=== PATIENT | female | born 1970 | race Caucasian/White ===

== ENCOUNTER 2021-12-21 11:51 | Emergency (ER) | payer OTHER ==
[~2021-12-21] VITALS: Ht 167 cm; Wt 68.0 kg
--- NOTE | 2021-12-21 13:16 | Diagnostic Imaging Report ---
INDICATION: constipation alternating with diarrhea COMPARISON: None. FINDINGS: Supine and upright views of the abdomen show a nondistended bowel gas pattern. No abnormal air fluid levels or free intraperitoneal air is seen. No abnormal extraosseous calcifications are seen. Bony and soft tissue structures are within normal limits. No organomegaly is identified. Accompanying upright chest shows normal heart size and pulmonary vascularity. The lungs are well aerated and clear. The mediastinum is normal in appearance. IMPRESSION: 1. No bowel obstruction or free air. 2. Normal chest. No pneumonia or pulmonary edema. Dictated by: Dictated on workstation # [id number]
--- NOTE | 2021-12-21 13:28 | ED GI ---
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 SHE REPORTS TAKING 3 BOTTLES OF MIRALAX OVER THE 9 DAYS. Source of Information: Patient History of Present Illness Date Seen by Provider: Dec 21, 2021 Time Seen by Provider: 13:04 Initial Comments 51-year-old female presenting with complaints of no solid bowel movement for 9 days. She reports whenever she drinks any fluids it passes quickly. She has taken several bottles of MiraLAX over the last several days. She felt like she was constipated so she was trying to help her bowels move. She had no fever, chills, nausea, vomiting, pain with urination, blood in her stool. She denies having any abdominal trauma. She has not had symptoms like this previously. Timing/Duration: Constant (Over the last 9 days) Severity/Quality: Moderate (Bloating and cramping) Location: Generalized Abdomen Activities at Onset: None Associated Symptoms: No Back Pain, No Chest Pain, No Diaphoresis, No Fev er/Chills, No Fatigue, No Headache, No Heartburn, No Nausea/Vomiting, No Rash, No Shortness of Air, No Swelling/Mass in Abdomen, No Syncope, No Weakness Allergies and Home Medications Allergies Coded Allergies: No Known Drug Allergies (Unverified , 12/21/21) Patient Home Medication List Home Medication List Reviewed: Yes Review of Systems Review of Systems Constitutional: No chills, No fever EENTM: No Symptoms Reported Respiratory: No Symptoms Reported Cardiovascular: No Symptoms Reported Gastrointestinal: See HPI Genitourinary: No Symptoms Reported Musculoskeletal: no symptoms reported Skin: no symptoms reported Psychiatric/Neurological: No Symptoms Reported Past Byrtnnu-Xoqsrg-Ntandt Hx Patient Social History Tobacco Use?: No Use of E-Cig and/or Vaping dev: No Substance use?: No Alcohol Use?: No Pt feels they are or have been: No Physical Exam Vital Signs Vital Signs - First Documented 12/21/21 13:06 Temp 36.3 Pulse 84 Resp 18 B/P (MAP) 118/76 (90) Pulse Ox 96 O2 Delivery Room Air Capillary Refill : Less Than 3 Seconds Height/Weight/BMI Height: '" Weight: lbs. oz. kg; 24.00 BMI Method: General Appearance: WD/WN, no apparent distress HEENT: PERRL/EOMI, pharynx normal Respiratory: chest non-tender, lungs clear, normal breath sounds Cardiovascular: normal peripheral pulses, regular rate, rhythm Gastrointestinal: normal bowel sounds, non tender, soft, no pulsatile mass Rectal: deferred Extremities: normal range of motion, non-tender, normal capillary refill Neurologic/Psychiatric: alert, oriented x 3 Skin: normal color, warm/dry Progress/Results/Core Measures Results/Orders My Orders Orders - MICA BAUTISTA MD Acute Abd Series (12/21/21 13:01) Vital Signs/I&O 12/21/21 12/21/21 13:06 13:46 Temp 36.3 36.3 Pulse 84 84 Resp 18 18 B/P (MAP) 118/76 (90) 118/76 Pulse Ox 96 96 O2 Delivery Room Air Blood Pressure Mean: 90 Progress Progress Note : Progress Note X-rays of the abdomen did not show any acute obstruction or significant amount of stool. She did have some gas throughout the colon. No signs of perforation or free air. Reassured patient and counseled on increasing the fiber in her diet. I did discuss further testing such as blood work and a CT scan to get further detail of her gut and patient wanted to try the fiber first. She was counseled on return precautions of increasing pain, uncontrolled nausea vomiting, fever over 101 Fahrenheit. Also advised to establish care with clinic for follow-up Diagnostic Imaging Diagonstic Imaging: Xray Plain Films/CT/US/NM/MRI: abdomen Comments [facility]. [place], [place] NAME: ANNA VENEGAS [facility] REC#: [id number] PT STATUS: REG ER : 1970 PHYSICIAN: MICA BAUTISTA MD ADMIT DATE: 12/21/21/ER FS Draft Date of Exam:12/21/21 ACUTE ABD SERIES INDICATION: constipation alternating with diarrhea COMPARISON: None. FINDINGS: Supine and upright views of the abdomen show a nondistended bowel gas pattern. No abnormal air fluid levels or free intraperitoneal air is seen. No abnormal extraosseous calcifications are seen. Bony and soft tissue structures are within normal limits. No organomegaly is identified. Accompanying upright chest shows normal heart size and pulmonary vascularity. The lungs are well aerated and clear. The mediastinum is normal in appearance. IMPRESSION: 1. No bowel obstruction or free air. 2. Normal chest. No pneumonia or pulmonary edema. Dictated on workstation # [id number] Dict: 12/21/21 1313 Trans: 12/21/21 1315 [id number] Interpreted by: RADHA SOSA MD Electronically signed by: Reviewed: Reviewed by Me Departure Impression Primary Impression: Abdominal pain Qualified Codes: R10.31 - Right lower quadrant pain Additional Impression: Abdominal bloating Disposition: HOME, SELF-CARE Condition: Stable Departure-Patient Inst. Decision time for Depature: 13:43 Referrals: NO,LOCAL PHYSICIAN (PCP) Primary Care Physician [facility] Patient Instructions: Abdominal Pain, Adult ED, High Fiber Diet Add. Discharge Instructions: Increase the fiber in your diet and drink plenty of fluids. If your pain or symptoms are worsening, having nausea and vomiting, fever over 101 Fahrenheit then return to be seen again You can get established with [facility] by calling [phone] All discharge instructions reviewed with patient and/or family. Voiced understanding. Work/School Note: Work Release Form Date Seen in the Emergency Department: Dec 21, 2021 Return to Work: Dec 26, 2021 Restrictions: No Restrictions MICA BAUTISTA MD Dec 21, 2021 13:28
[2021-12-21 13:46] VITALS: BP 118/76
== END 2021-12-21 13:47 | disposition home or self-care (01) ==
LOC: ER FS 11:53
DX: R10.84 Generalized abdominal pain (principal); R14.0 Abdominal distension (gaseous); Z28.310 Unvaccinated for COVID-19
CPT/HCPCS: 74022

== ENCOUNTER 2021-12-23 05:24 | Emergency (ER) | payer OTHER ==
[~2021-12-23] VITALS: Ht 167.7 cm; Wt 68.3 kg
[2021-12-23] MEDS ORDERED: morphine INJ 10 MG/ML 1ML (SYR OR VIAL) IVP STA (05:38)
--- NOTE | 2021-12-23 05:42 | ED Abdominal Pain ---
General Chief Complaint: Abdominal/GI Problems Stated Complaint: LT SIDE PAID Source of Information: Patient, Old Records Exam Limitations: No Limitations History of Present Illness Date Seen by Provider: Dec 23, 2021 Time Seen by Provider: 05:26 Initial Comments 51-year-old female with no pertinent past medical history coming in due to left- sided abdominal pain. Its been going on for roughly 2 days, constant, sharp, nothing seems to make it better. Worse with any type of movement. Has not had any nausea or vomiting associated with it. States she has not had a bowel movement and now roughly 11 days. She does not believe she is even passing any flatus. She was seen in this emergency department a couple days ago, but the pain is worsening so she presented back. She denies ever having pain like this before. Otherwise denying any chest pain, shortness of breath, diarrhea, dysuria, vaginal discharge, rash, or any other concerns. She is postmenopausal. Allergies and Home Medications Allergies Coded Allergies: No Known Drug Allergies (Unverified , 12/21/21) Patient Home Medication List Home Medication List Reviewed: Yes Cefdinir (Cefdinir) 300 Mg Capsule, 300 MG PO BID Prescribed by: HALLEY LOZA on 12/23/21 0637 Hydrocodone Bit/Acetaminophen (HYDROcodone/APAP 5 MG/325 MG TAB) 1 Tab Tab, 1 TAB PO Q8H PRN for PAIN-SEVERE (8-10) Prescribed by: HALLEY LZOA on 12/23/21 0638 Potassium Chloride (Potassium Chloride) 20 Meq Tablet.er, 20 MEQ PO DAILY Prescribed by: HALLEY LOZA on 12/23/21 0640 Review of Systems Review of Systems Constitutional: No fever EENTM: No Blurred Vision Respiratory: Denies Cough Cardiovascular: Denies Chest Pain Gastrointestinal: Abdominal Pain, Constipated Genitourinary: No Symptoms Reported Musculoskeletal: no symptoms reported Skin: no symptoms reported Psychiatric/Neurological: No Symptoms Reported Endocrine: No Symptoms Reported Hematologic/Lymphatic: No Symptoms Reported All Other Systems Reviewed Negative Unless Noted: Yes Past Yatjuzv-Rlzhrp-Aguxgf Hx Patient Social History Tobacco Use?: No Substance use?: No Alcohol Use?: No Past Medical History Surgeries: No Physical Exam Vital Signs Vital Signs - First Documented 12/23/21 05:28 Temp 36.9 Pulse 80 Resp 14 B/P (MAP) 124/73 (90) Pulse Ox 96 O2 Delivery Room Air Capillary Refill : Height/Weight/BMI Height: '" Weight: lbs. oz. kg; 24.00 BMI Method: General Appearance: WD/WN, mild distress HEENT: PERRL/EOMI, normal ENT inspection, pharynx normal Neck: non-tender, full range of motion, supple, normal inspection Respiratory: chest non-tender, lungs clear, normal breath sounds, no respiratory distress, no accessory muscle use Cardiovascular: regular rate, rhythm, no edema, no murmur Gastrointestinal: normal bowel sounds, soft; No distended, No guarding, No rebound; tenderness Extremities: normal range of motion, non-tender, normal inspection, no pedal edema, no calf tenderness, normal capillary refill Back: normal inspection, no CVA tenderness Neurologic/Psychiatric: no motor/sensory deficits, alert, normal mood/affect Skin: normal color, warm/dry Lymphatic: no adenopathy Progress/Results/Core Measures Results/Orders Lab Results Laboratory Tests Test 12/23/21 05:28 12/23/21 05:43 Range/Units Urine Color BROWN H Urine Clarity TURBID Urine pH 6.5 5-9 Urine Specific [place] 1.025 H 1.016-1.022 Urine Protein 2+ H NEGATIVE Urine Glucose (UA) NEGATIVE NEGATIVE Urine Ketones TRACE H NEGATIVE Urine Nitrite POSITIVE H NEGATIVE Urine Bilirubin NEGATIVE NEGATIVE Urine Urobilinogen 1.0 < = 1.0 MG/DL Urine Leukocyte Esterase TRACE H NEGATIVE Urine RBC (Auto) 3+ H NEGATIVE Urine RBC TNTC H /HPF Urine WBC 5-10 H /HPF Urine Squamous Epithelial Cells NONE /HPF Urine Crystals PRESENT H /LPF Urine Amorphous Sediment LARGE RONNY PHOSPHATE H /LPF Urine Bacteria FEW H /HPF Urine Casts NONE /LPF Urine Mucus LARGE H /LPF Urine Culture Indicated YES White Blood Count 11.2 H 4.3-11.0 10^3/uL Red Blood Count 3.65 L 3.80-5.11 10^6/uL Hemoglobin 11.0 L 11.5-16.0 g/dL Hematocrit 32 L 35-52 % Mean Corpuscular Volume 88 80-99 fL Mean Corpuscular Hemoglobin 30 25-34 pg Mean Corpuscular Hemoglobin Concent 34 32-36 g/dL Red Cell Distribution Width 12.4 10.0-14.5 % Platelet Count 475 H 130-400 10^3/uL Mean Platelet Volume 8.5 L 9.0-12.2 fL Immature Granulocyte % (Auto) 0 % Neutrophils (%) (Auto) 81 H 42-75 % Lymphocytes (%) (Auto) 11 L 12-44 % Monocytes (%) (Auto) 7 0-12 % Eosinophils (%) (Auto) 0 0-10 % Basophils (%) (Auto) 0 0-10 % Neutrophils # (Auto) 9.1 H 1.8-7.8 10^3/uL Lymphocytes # (Auto) 1.2 1.0-4.0 10^3/uL Monocytes # (Auto) 0.8 0.0-1.0 10^3/uL Eosinophils # (Auto) 0.0 0.0-0.3 10^3/uL Basophils # (Auto) 0.0 0.0-0.1 10^3/uL Immature Granulocyte # (Auto) 0.1 0.0-0.1 10^3/uL Prothrombin Time 13.0 12.2-14.7 SEC INR Comment 0.9 0.8-1.4 Activated Partial Thromboplast Time 28 24-35 SEC Sodium Level 131 L 135-145 MMOL/L Potassium Level 3.0 L 3.6-5.0 MMOL/L Chloride Level 83 L 98-107 MMOL/L Carbon Dioxide Level 33 H 21-32 MMOL/L Anion Gap 15 H 5-14 MMOL/L Blood Urea Nitrogen 11 7-18 MG/DL Creatinine 0.81 0.60-1.30 MG/DL Estimat Glomerular Filtration Rate 88 BUN/Creatinine Ratio 14 Glucose Level 129 H 70-105 MG/DL Calcium Level 8.8 8.5-10.1 MG/DL Corrected Calcium 9.2 8.5-10.1 MG/DL Magnesium Level 2.3 1.6-2.4 MG/DL Total Bilirubin 0.2 0.1-1.0 MG/DL Aspartate Amino Transf (AST/SGOT) 40 H 5-34 U/L Alanine Aminotransferase (ALT/SGPT) 36 0-55 U/L Alkaline Phosphatase 148 H 40-136 U/L C-Reactive Protein 21.68 H <0.50 MG/DL Total Protein 7.9 6.4-8.2 GM/DL Albumin 3.5 3.2-4.5 GM/DL Lipase 32 8-78 U/L My Orders Orders - HALLEY LOZA MD Cbc With Automated Diff (12/23/21 05:38) Comprehensive Metabolic Panel (12/23/21 05:38) Lipase (12/23/21 05:38) Magnesium (12/23/21 05:38) Protime With Inr (12/23/21 05:38) Partial Thromboplastin Time (12/23/21 05:38) Ua Culture If Indicated (12/23/21 05:38) Crp Fs (12/23/21 05:38) Ct Abdomen/Pelvis W (12/23/21 05:38) Morphine Injection (Morphine Injection (12/23/21 05:38) Ondansetron Injection (Zofran Injectio (12/23/21 05:45) Iohexol Injection (Omnipaque 350 Mg/Ml 1 (12/23/21 05:45) Received Contrast (Hold Metformin- Contr (12/23/21 05:45) Ns (Ivpb) (Sodium Chloride 0.9% Ivpb Bag (12/23/21 05:45) Ed Iv/Invasive Line Start (12/23/21 05:45) Urine Culture (12/23/21 05:28) Ceftriaxone 1 Gm Pre-Mix (Rocephin 1 Gm (12/23/21 06:30) Medications Given in ED Current Medications Medications Dose Ordered Sig/Ramírez Route Start Time Stop Time Status Last Admin Dose Admin Ceftriaxone Sodium/Dextrose 50 ml @ 100 mls/hr ONCE ONCE IV 12/23/21 06:30 12/23/21 06:59 12/23/21 06:36 100 MLS/HR Iohexol 100 ml ONCE ONCE IV 12/23/21 05:45 12/23/21 05:46 DC 12/23/21 05:58 100 ML Ondansetron HCl 4 mg ONCE ONCE IVP 12/23/21 05:45 12/23/21 05:46 DC 12/23/21 05:49 4 MG Sodium Chloride 100 ml ONCE ONCE IV 12/23/21 05:45 12/23/21 05:46 DC 12/23/21 05:58 100 ML Vital Signs/I&O 12/23/21 05:28 Temp 36.9 Pulse 80 Resp 14 B/P (MAP) 124/73 (90) Pulse Ox 96 O2 Delivery Room Air Progress Progress Note : Progress Note 51-year-old female with above history coming in due to left-sided abdominal pain. ABCs were intact and vitals are stable on presentation. Physical exam with some tenderness but no signs of peritonitis. An IV was placed and basic labs were obtained including urinalysis as well. Urinalysis looks consistent with infection. White blood cell count elevated and CRP elevated. CT abdomen pelvis concerning for pyelonephritis and cystitis which is fitting her clinical picture. Given her lack of comorbidities, she would be relatively low risk. We will give her a dose of ceftriaxone and send her home on antibiotics. Diagnostic Imaging Diagonstic Imaging: CT (abd/pelvis) Comments [facility]. [place], [place] NAME: ANNA VENEGAS [facility] REC#: [id number] PT STATUS: REG ER : 1970 PHYSICIAN: HALLEY LOZA MD ADMIT DATE: 12/23/21/ER FS Draft Date of Exam:12/23/21 CT ABDOMEN/PELVIS W PROCEDURE: CT abdomen and pelvis with contrast. TECHNIQUE: Multiple contiguous axial images were obtained through the abdomen and pelvis after administration of intravenous contrast. Auto Exposure Controls were utilized during the CT exam to meet ALARA standards for radiation dose reduction. All CT scans use one or more of the following dose optimizing techniques: automated exposure control, MA and/or KvP adjustment based on patient size and exam type or iterative reconstruction. INDICATION: Abdominal pain and hematuria There is mild dependent atelectasis seen in the visualized lung bases. There is mild low density throughout the liver indicating steatosis without evidence of focal hepatic abnormality. No gallbladder, pancreatic or adrenal gland lesion is identified. Spleen is unremarkable with probable calcified granuloma in the anterior portion. There is heterogeneous enhancement within both kidneys. There is mural thickening of the left renal pelvis and ureter with surrounding edema and inflammation. There is also significant mural thickening of the urinary bladder. Calcifications in the pelvis are likely due to phleboliths, greater on the left. Possibility of distal ureteric stone is not fully excluded. There is no free fluid. No pathologically enlarged adenopathy is identified and there is no evidence of abscess. IMPRESSION: Heterogeneous appearance of the renal enhancement which is more pronounced on the left would suggest bacterial pyelonephritis. There is also evidence of mural thickening in the left renal pelvis and ureter indicating inflammation due to infection with urinary bladder thickening indicating a component of cystitis. Clinical correlation is recommended. If warranted, follow-up study could be performed after treatment for urinary tract infection to document resolution. Dictated on workstation # [id number] Dict: 12/23/21615 Trans: 12/23/21621 [id number] Interpreted by: BERTHA AGUDELO MD Electronically signed by: Departure Impression Primary Impression: Pyelonephritis Additional Impression: Hypokalemia Disposition: 01 HOME, SELF-CARE Condition: Stable Departure-Patient Inst. Decision time for Depature: 06:45 Referrals: NO,LOCAL PHYSICIAN (PCP/Family) Primary Care Physician Patient Instructions: Kidney Infection (DC) Add. Discharge Instructions: You will be on antibiotics for the next couple of weeks. Be sure to finish all of the antibiotics even if you start feeling better. I suspect you will start feeling better in the next 24 to 48 hours. If you start feeling a lot worse after that time then I recommend coming back to the ER. Take the hydrocodone only as needed for uncontrollable pain. You can try ibuprofen 400mg as well which will not make you sleepy and is over the counter. Your potassium was also low. You will need to take a potassium supplement for the next week as well. Scripts Potassium Chloride (Potassium Chloride) 20 Meq Tablet.er 20 MEQ PO DAILY for 7 Days, #7 TAB Prov: HALLEY LOZA MD 12/23/21 Hydrocodone Bit/Acetaminophen (HYDROcodone/APAP 5 MG/325 MG TAB) 1 Tab Tab 1 TAB PO Q8H PRN for PAIN-SEVERE (8-10) for 3 Days, #9 TAB 0 Refills Prov: HALLEY LOZA MD 12/23/21 Cefdinir (Cefdinir) 300 Mg Capsule 300 MG PO BID for 14 Days, #28 CAP 0 Refills Prov: HALLEY LOZA MD 12/23/21 HALLEY LOZA MD Dec 23, 2021 05:42
[2021-12-23] MEDS ORDERED: NS 100 ML (IVPB) BAG IV ONE (05:45)
[2021-12-23] MEDS ORDERED: IOHEXOL 350 MG/ML 100 ML (OMNIPAQUE 350) VIAL IV ONE (05:45)
[2021-12-23] MEDS ORDERED: ONDANSETRON 4 MG/2 ML (SDV) Z0FRAN IVP ONE (05:45)
[2021-12-23] MEDS ORDERED: HOLD METFORMIN - RECEIVED CONTRAST 20 ML VIAL IV SCH (05:45)
[2021-12-23 05:51] LABS: BILIRUBIN,URINE NEGATIVE (NEGATIVE); CLARITY,URINE TURBID; GLUCOSE, URINE (UA) NEGATIVE (NEGATIVE); KETONES,URINE TRACE (NEGATIVE); LEUKOCYTE ESTERASE ,URINE TRACE (NEGATIVE); NITRITE,URINE POSITIVE (NEGATIVE); PH,URINE 6.5 (5-9); PROTEIN,URINE 2+ (NEGATIVE)
[2021-12-23 05:53] LABS: BASOPHILS % (AUTO) 0 % (0-10); EOSINOPHILS % (AUTO) 0 % (0-10); HEMATOCRIT 32 % (35-52); LYMPHOCYTES # (AUTO) 1.2 10^3/uL (1.0-4.0); LYMPHOCYTES % (AUTO) 11 % (12-44); MEAN CORPUSCULAR HEMOGLOBIN 30 pg (25-34); MEAN CORPUSCULAR HGB CONC 34 g/dL (32-36); MEAN CORPUSCULAR VOLUME 88 fL (80-99); MEAN PLATELET VOLUME 8.5 fL (9.0-12.2); MONOCYTES # (AUTO) 0.8 10^3/uL (0.0-1.0); MONOCYTES % (AUTO) 7 % (0-12); NEUTROPHILS # (AUTO) 9.1 10^3/uL (1.8-7.8); NEUTROPHILS % (AUTO) 81 % (42-75); PLATELET COUNT 475 10^3/uL (130-400); WHITE BLOOD COUNT 11.2 10^3/uL (4.3-11.0)
[2021-12-23 06:10] LABS: BACTERIA,URINE FEW /HPF; COLOR,URINE BROWN; RBC,URINE TNTC /HPF
[2021-12-23 06:11] LABS: AMORPHOUS SEDIMENT,UR LARGE AMOR PHOSPHATE /LPF
[2021-12-23 06:21] LABS: CREATININE SERUM 0.81 MG/DL (0.60-1.30)
[2021-12-23 06:22] LABS: ALBUMIN 3.5 GM/DL (3.2-4.5); BILIRUBIN,TOTAL 0.2 MG/DL (0.1-1.0); CALCIUM 8.8 MG/DL (8.5-10.1); MAGNESIUM 2.3 MG/DL (1.6-2.4); TOTAL PROTEIN 7.9 GM/DL (6.4-8.2)
--- NOTE | 2021-12-23 06:22 | Diagnostic Imaging Report ---
PROCEDURE: CT abdomen and pelvis with contrast. TECHNIQUE: Multiple contiguous axial images were obtained through the abdomen and pelvis after administration of intravenous contrast. Auto Exposure Controls were utilized during the CT exam to meet ALARA standards for radiation dose reduction. All CT scans use one or more of the following dose optimizing techniques: automated exposure control, MA and/or KvP adjustment based on patient size and exam type or iterative reconstruction. INDICATION: Abdominal pain and hematuria There is mild dependent atelectasis seen in the visualized lung bases. There is mild low density throughout the liver indicating steatosis without evidence of focal hepatic abnormality. No gallbladder, pancreatic or adrenal gland lesion is identified. Spleen is unremarkable with probable calcified granuloma in the anterior portion. There is heterogeneous enhancement within both kidneys. There is mural thickening of the left renal pelvis and ureter with surrounding edema and inflammation. There is also significant mural thickening of the urinary bladder. Calcifications in the pelvis are likely due to phleboliths, greater on the left. Possibility of distal ureteric stone is not fully excluded. There is no free fluid. No pathologically enlarged adenopathy is identified and there is no evidence of abscess. IMPRESSION: Heterogeneous appearance of the renal enhancement which is more pronounced on the left would suggest bacterial pyelonephritis. There is also evidence of mural thickening in the left renal pelvis and ureter indicating inflammation due to infection with urinary bladder thickening indicating a component of cystitis. Clinical correlation is recommended. If warranted, follow-up study could be performed after treatment for urinary tract infection to document resolution. Dictated by: Dictated on workstation # [id number]
[2021-12-23 06:26] LABS: INR 0.9 (0.8-1.4)
[2021-12-23] MEDS ORDERED: cefTRIAXone 1 GM PRE-MIX 50 ML IV ONE (06:30)
[2021-12-23] MEDS ORDERED: CEFD300C3 PO (06:37)
[2021-12-23] MEDS ORDERED: ACHD5005 PO (06:37)
[2021-12-23] MEDS ORDERED: POTA-51 PO (06:40)
[2021-12-23 06:43] VITALS: BP 110/72
== END 2021-12-23 06:45 | disposition home or self-care (01) ==
LOC: EDUNIT# 05:24 → ER FS 05:26
DX: N12 Tubulo-interstitial nephritis, not specified as acute or chronic (principal); E87.6 Hypokalemia; Z28.310 Unvaccinated for COVID-19
CPT/HCPCS: 36415; 74177; 80053; 81000; 83690; 83735; 85025; 85610; 85730; 86141; 87077; 87088; 87186; Q9967